=== PATIENT | male | born 2000 | race Caucasian/White ===

== ENCOUNTER 2021-09-22 10:14 | Outpatient (CLI) | payer BC | END 2021-09-22 10:15 | disposition home or self-care (01) | LOC: CSHRAD 10:14 | PROVIDERS: ATTEND Family Medicine Sports Medicine | DX: S60.031A Contusion of right middle finger without damage to nail, initial encounter (principal); S62.632A Displaced fracture of distal phalanx of right middle finger, initial encounter for closed fracture ==